=== PATIENT | female | born 1970 | race Two or more races ===

== ENCOUNTER 2025-06-22 00:30 | Emergency (ER) | payer MEDICAID, OTHER ==
[~2025-06-22] VITALS: Ht 170.2 cm; Wt 91.0 kg
[~2025-06-22 00:30] MED LIST: CEPH250C PO; IBU600T PO
[2025-06-22] MEDS: HYDROcodone-ACET 5/325MG TAB PO ONE ×2 (02:07→04:12)
--- NOTE | 2025-06-22 02:38 | DVH ---
CLINICAL INDICATION: Status post fall injury TECHNIQUE: XY R HIP COMPLETE XRAY Comparison: None FINDINGS/IMPRESSION: : Hardware status post bilateral hip arthroplasty without evidence of complication. There is no evidence of acute fracture or dislocation. Soft tissues are unremarkable.
--- NOTE | 2025-06-22 02:39 | DVH ---
CLINICAL INDICATION: Status post fall injury TECHNIQUE: XY R ANKLE 3 VIEW Comparison: None FINDINGS/IMPRESSION: : Small cortical fragments laterally adjacent to the talus and calcaneonavicular joint appeared represent acute avulsion and/or chip fractures. Retrocalcaneal enthesopathy. Soft tissues are unremarkable.
--- NOTE | 2025-06-22 02:41 | DVH ---
CLINICAL INDICATION: Status post fall injury TECHNIQUE: XY R KNEE 3V XRAY Comparison: None FINDINGS/IMPRESSION: : Hardware status post total knee arthroplasty without evidence of complication. There is no evidence of acute fracture or dislocation. Soft tissues are unremarkable.
--- NOTE | 2025-06-22 03:05 | ED.PDOC ---
Back pain HPI HPI Comments PT PRESENTS TO ED FOR CC OF R ANKLE PAIN AND R KNEE PAIN, R HIP PAIN, S/P MECHANICAL FALL WHEN GETTING UP FROM BED X THIS AM. DENIES WEAKNESS, NECK OR BACK PAIN Chief Complaint: Lower Extremity Time Seen by MD: 00:49 Primary Care Provider: ANGEL Reviewed Notes: Nurses Notes, Medications, Allergies Allergies: Coded Allergies: Penicillins (Verified Allergy, Unknown, 08/07/23) Home Meds Active Scripts Ibuprofen Micronized (MOTRIN TABLET) 600 Mg Tb, 600 MG PO TID PRN for 5 Days, #15 TAB *Black box warning-NSAIDS can increase risk of NM & hypertension, GI irritation, ulceration, bleed, perferation. Do not use post cardiac surgery. Use short duration/lowest effective dose. Prov:KENDALL MARTINEZ MD 08/07/23 Cephalexin (KEFLEX CAPSULE) 250 Mg Cp, 250 MG PO QID for 7 Days, #28 BOTTLE Prov:KENDALL MARTINEZ MD 08/07/23 Information Source: Patient Mode of Arrival: EMS Family History Family History: Unknown Social History Smoker: Non-Smoker Alcohol: Denies ETOH Use Drugs: Denies Drug Use Lives In: Home Physical Exam General Appearance: No Apparent Distress, Normal HEENT: Pharynx Normal Neck: Full Range of Motion, Non-Tender Respiratory: Lungs Clear, No Respiratory Distress, Normal Breath Sounds Cardiovascular: No Murmur, Normal Peripheral Pulses, Regular Rate/Rhythm Breast Exam: Deferred Gastrointestinal: Non Tender, Soft Genitalia: Deferred Pelvic: Deferred Rectal: Deferred Extremities: Normal capillary refill, No pedal edema Musculoskeletal : Location: Right Extremity Location: Ankle (Moderate edema lateral aspect with ecchymosis. Strength sensory motion intact positive pedal pulse) Apperance: Normal Neurologic: Alert, No Motor Deficits, Normal Affect, Normal Mood, No Sensory Deficits Cerebellar Function: Normal Reflexes: NOT DONE Skin: Dry, Normal Color, Warm Lymphatic: No Adenopathy Was a procedure done? Was a procedure done?: No Back Pain Differential Dx Differential Diagnosis: Fracture, Musculoskeletal Pain, Strain X-Ray, Labs, Meds, VS Vital Signs Date Time Temp Pulse Resp B/P (MAP) Pulse Ox O2 Delivery O2 Flow Rate FiO2 06/22/25 02:35 97.5 65 18 124/86 (99) 100 97.5 06/22/25 00:30 98.1 69 18 120/80 96 98.1 Current Medications Medications (Trade) Dose Ordered Sig/Sandip Route Start Time Stop Time Status Last Admin Acetaminophen/ Hydrocodone Bitart ([place] 5/325MG Tab) 1 tab ONCE ONCE PO 06/22/25 02:00 06/22/25 02:01 DC 06/22/25 02:07 X-Ray, Labs, Meds, VS Comment FINDINGS/IMPRESSION: : Small cortical fragments laterally adjacent to the talus and calcaneonavicular j oint appeared represent acute avulsion and/or chip fractures. Retrocalcaneal enthesopathy. Soft tissues are unremarkable. IMAGING REVIEWED NOTED ABOVE. PATIENT PLACED IN POSTERIOR AND STIRRUP SPLINT. TYLENOL OR MOTRIN NEEDED FOR THE PAIN PER LABELED DOSING INSTRUCTIONS. ADVISED ON RICE. FOLLOW UP WITH YOUR PCP IN 2-3 DAYS REFERRAL TO [facility]TH[facility] FOR CONSULT AND EVALUATION. ER RETURN PRECAUTIONS GIVEN PATIENT INDICATES UNDERSTANDING AND AGREES WITH DISCHARGE PLAN OF CARE. Images Reviewed?: Images reviewed and evaluated by me Time of 1ST Reevaluation: 00:49 Reevaluation 1ST: Unchanged Time of 2ND Reevaluation: 03:43 Reevaluation 2ND: Improved Patient Education/Counseling: Diagnosis, Treatment, Need For Follow Up Family Education/Counseling: No Family Present SEPSIS Sepsis Screen Date sepsis recognized/suspect: Jun 22, 2025 Time Sepsis recognized/suspect: 003 Recent Procedure: No On Antibiotic Therapy: No Respiratory Rate >20: No Heart Rate >90: No Temp<36 C (96.8 F) or >38.3 C: No SBP <90 or MAP <65 mmHG: No New Acute Mental Status Change: No Is the patient on CPAP, BIPAP,: No Physician Orders R Ankle 3 View (06/22/25 00:56) R Knee 3v Xray (06/22/25 00:56) R Hip Complete Xray (06/22/25 00:56) Splints (06/22/25 ) Crutches And Crutch Training (06/22/25 03:10) Apply Ice To Affected Area (06/22/25 03:12) Hydrocodone-Acet 5/325mg Tab ([place] 5/32 (06/22/25 03:45) Vital Signs Date Time Temp Pulse Resp B/P (MAP) Pulse Ox O2 Delivery O2 Flow Rate FiO2 06/22/25 02:35 97.5 65 18 124/86 (99) 100 97.5 06/22/25 00:30 98.1 69 18 120/80 96 98.1 Medications Medications Dose Ordered Sig/Sandip Route Start Time Stop Time Status Last Admin Dose Admin Acetaminophen/ Hydrocodone Bitart 1 tab ONCE ONCE PO 06/22/25 02:00 06/22/25 02:01 DC 06/22/25 02:07 Departure 1 Departure Time of Disposition: 03:42 Impression: Primary Impression: Ankle fracture, right Qualified Codes: S82.891A - Other fracture of right lower leg, initial encounter for closed fracture Disposition: 01 HOME / SELF CARE / HOMELESS Condition: Stable Discharged With: Significant Other Critical Care Note Critical Care Time?: No Stability Stability form required: AJ Whitten Jun 22, 2025 03:05
[2025-06-22 04:12] VITALS: BP 112/59; PULSE 69; RESP 16; TEMP 97.5; O2SAT 100
== END 2025-06-22 04:32 | disposition home or self-care (01) ==
LOC: EDUNIT# 00:30 → EDBD 00:30 → ER 00:30
DX: S82.891A Other fracture of right lower leg, initial encounter for closed fracture (principal); Z88.0 Allergy status to penicillin; Z79.899 Other long term (current) drug therapy; W19.XXXA Unspecified fall, initial encounter; Y93.89 Activity, other specified; Y92.89 Other specified places as the place of occurrence of the external cause; Y99.8 Other external cause status
CPT/HCPCS: 29515; 73502; 73562; 73610